=== PATIENT | female | born 1950 | race Caucasian/White ===

== ENCOUNTER 2017-08-23 10:52 | Emergency (ER) | payer OTHER ==
[~2017-08-23] VITALS: Ht 157.5 cm; Wt 52.2 kg
[2017-08-23 10:52] VITALS: BP_SYST 147
[~2017-08-23 10:52] MED LIST: CEL20 PO
[2017-08-23] MEDS ORDERED: ACETAMINOPHEN 500 MG TABLET PO ONE (12:15)
[2017-08-23 12:34] VITALS: BP_SYST 147
== END 2017-08-23 12:34 | disposition home or self-care (01) ==
LOC: SED 10:52
DX: H61.21 Impacted cerumen, right ear (principal); Z88.1 Allergy status to other antibiotic agents
CPT/HCPCS: 99283

== ENCOUNTER 2018-07-04 20:37 | Emergency (ER) | payer OTHER ==
[~2018-07-04] VITALS: Ht 157.5 cm; Wt 53.1 kg
[2018-07-04 21:07] VITALS: BP_SYST 118
--- NOTE | 2018-07-04 22:02 | NUR ---
Patient to [facility] for evaluation. Side rails up. Report given to Radha EDMONDS.
--- NOTE | 2018-07-04 22:05 | NUR ---
Patient presented to ED c/o R lateral Rib pain radiating to her back, 08/27. Patient stated she accidentally hit her rib with her elbow while doing housework last week. Patient denies fever, N&V. No SOB or acute distress noted. Family at bedside. Patient A/O x 4. Will continue to monitor.
--- NOTE | 2018-07-04 22:28 | NUR ---
ER Dr. Tapia at bedside examining patient.
[2018-07-04] MEDS ORDERED: KETOROLAC TROMETHAMINE 15 MG VIAL IM ONE (23:15)
[2018-07-04] MEDS ORDERED: CYCLOBENZAPRINE HCL 10 MG TABLET (FLEXERIL) PO ONE (23:15)
[2018-07-04] MEDS ORDERED: HYDROcodone/ACETAMIN 10-325 MG TAB PO ONE (23:15)
--- NOTE | 2018-07-04 23:25 | NUR ---
Patient made aware of CT scan ordered, pt refused the procedure and verbalized she'll come back terence to ED as she lives across the [address]. Pt verbalized she's ready to go home. made aware. CHRISTINA made aware.
--- NOTE | 2018-07-04 23:26 | NUR ---
Patient VSS. Patient verbalizes that she wants to go home and waited long enough to be seen. Pt made aware that MD will be preparing discharge instructions. Pt agreed to wait. MD and Charge nurse made aware.
[2018-07-04 23:35] VITALS: BP_SYST 121
--- NOTE | 2018-07-04 23:40 | NUR ---
Patient left without discharge instructions. MD and Charge nurse made aware.
== END 2018-07-04 23:40 | disposition home or self-care (01) ==
LOC: SED 20:37
DX: R07.89 Other chest pain (principal); M54.9 Dorsalgia, unspecified; Z88.8 Allergy status to other drugs, medicaments and biological substances; Z91.013 Allergy to seafood
CPT/HCPCS: 71100; 93005; 96372; 99284; J1885